=== PATIENT | female | born 1990 | race African-American/Black ===

== ENCOUNTER 2021-08-23 15:04 | Emergency (ER) | payer OTHER ==
[2021-08-23 16:21] LABS: Bilirubin Neg (Negative); Blood, Urine Negative (Negative); Clarity Clear (Clear); Glucose, Urine (Dipstick) Normal (Negative); Ketone, Urine Negative (Negative); Leukocyte Negative (Negative); Nitrite Negative (Negative); Protein, Urine (Dipstick) Negative (Neg-Trace); Urobilinogen Normal mg/dL (Less than 2)
[2021-08-23 16:23] LABS: Pregnancy Test - Urine (BHCG) Negative (Negative); Pregu Control Background? CLEAR/WHITE (CLR/WHITE); Pregu Control Bar Appear? YES (CONTROL BAR)
[2021-08-23] MEDS ORDERED: Ketorolac Tromethamine 30 MG/ML VIAL ONE (17:51)
[2021-08-26 20:38] LABS: Chlamydia by PCR Not Detected (NotDetected); GC by PCR Not Detected (NotDetected)
== END 2021-08-23 18:33 | disposition home or self-care (01) ==
LOC: CSHERS 15:04
DX: R30.0 Dysuria (principal); R10.31 Right lower quadrant pain; Z79.899 Other long term (current) drug therapy
CPT/HCPCS: 81003; 81025; 87491; 87591; 96372; 99284; J1885

== ENCOUNTER 2025-02-12 00:48 | Emergency (ER) | payer MEDICAID, SELFPAY ==
[2025-02-12 01:18] LABS: Glucose, Urine (Dipstick) Normal (Negative); Leukocyte 25 (Negative); Protein, Urine (Dipstick) 30 mg/dl (Neg-Trace); Specific Gravity, Urine 1.020 (1.005-1.030)
[2025-02-12 01:27] LABS: Bacteria/HPF None Seen HPF (None Seen); CAUTI Indications for Culture Pregnancy; RBC/HPF 0-3 HPF (0-3); WBC/HPF 0-3 HPF (0-3)
[2025-02-12 01:28] LABS: Urine Culture Reflex Yes Yes
[2025-02-12 01:41] LABS: #Basophils Less than 0.03 10x3/uL (0.0-0.2); #Eosinophils 0.15 10x3/uL (0.0-0.5); #Monocytes 1.30 10x3/uL (0.0-1.1); #Neutrophils 9.94 10x3/uL (1.5-8.4); %Basophils 0.1 % (0.0-2.0); %Eosinophils 1.1 % (0.0-6.0); %Lymphocytes 17.0 % (18.0-47.0); %Monocytes 9.3 % (0.0-10.0); %Neutrophils 71.4 % (40.0-75.0); Hematocrit 29.0 % (34.9-44.5); Hemoglobin 8.8 g/dL (12.0-15.5); Mean Corpuscular Hemoglobin 22.4 pg (27.0-33.0); Mean Corpuscular Volume 74.0 fL (81.6-98.3); Platelet Count 233 10x3/uL (150-450); Red Blood Cell (RBC) Count 3.92 10x6/uL (3.90-5.03); White Blood Cell (WBC) Count 13.92 10x3/uL (3.5-10.5)
[2025-02-12 01:53] LABS: ALT (SGPT) 28 U/L (Less than 34); AST (SGOT) 30 U/L (11-34); Albumin 3.4 g/dL (3.1-4.5); Alkaline Phosphatase 62 U/L (40-110); Anion Gap 13 mmol/L (10-20); BUN (Urea Nitrogen) 6 mg/dL (7.0-18.7); Bilirubin, Total 0.3 mg/dL (0.3-1.2); Calc. Creatinine Clearance 0 mL/min (70-130); Calcium 8.6 mg/dL (7.8-10.44); Carbon Dioxide 21 mmol/L (22-29); Chloride 106 mmol/L (98-107); Globulin 4.0 g/dL (2.4-3.5); Glucose 96 mg/dL (70-105); Potassium 3.6 mmol/L (3.5-5.1); Sodium 136 mmol/L (136-145)
[2025-02-12] MEDS ORDERED: Acetaminophen 500 MG TAB ONE (01:58)
[2025-02-12 02:00] LABS: Troponin I Less than 0.010 ng/mL (< 0.028)
[2025-02-12] MEDS ORDERED: Cephalexin 250 MG CAP ONE (03:43)
== END 2025-02-12 03:52 | disposition home or self-care (01) ==
LOC: CSHERS 00:48
DX: O23.42 Unspecified infection of urinary tract in pregnancy, second trimester (principal); N39.0 Urinary tract infection, site not specified; Z3A.22 22 weeks gestation of pregnancy
CPT/HCPCS: 36415; 76815; 80053; 81001; 83880; 84443; 84484; 85025; 87086

== ENCOUNTER 2025-03-02 14:37 | Emergency (ER) | payer MEDICAID ==
[2025-03-02] MEDS ORDERED: diphenhydrAMINE 50 MG/ML VIAL ONE (15:11)
[2025-03-02] MEDS ORDERED: Metoclopramide HCl 10 MG (2 mL) VIAL ONE (15:11)
[2025-03-02 15:55] LABS: ALT (SGPT) 21 U/L (Less than 34); AST (SGOT) 32 U/L (11-34); Albumin 3.5 g/dL (3.1-4.5); Alkaline Phosphatase 71 U/L (40-110); Anion Gap 15 mmol/L (10-20); BUN (Urea Nitrogen) 6 mg/dL (7.0-18.7); Bilirubin, Total 0.6 mg/dL (0.3-1.2); Calc. Creatinine Clearance 0 mL/min (70-130); Calcium 8.5 mg/dL (7.8-10.44); Carbon Dioxide 20 mmol/L (22-29); Chloride 107 mmol/L (98-107); Globulin 3.8 g/dL (2.4-3.5); Glucose 98 mg/dL (70-105); Lipase 8 U/L (8-78); Potassium 3.7 mmol/L (3.5-5.1); Sodium 138 mmol/L (136-145)
[2025-03-02 15:56] LABS: BHCG - Serum POSITIVE (NEGATIVE); Pregs Control Background? CLEAR/WHITE (CLR/WHITE); Pregs Control Bar Appear? YES (CONTROL BAR)
[2025-03-02 16:47] LABS: #Basophils Less than 0.03 10x3/uL (0.0-0.2); #Eosinophils 0.04 10x3/uL (0.0-0.5); #Monocytes 0.75 10x3/uL (0.0-1.1); #Neutrophils 8.72 10x3/uL (1.5-8.4); %Basophils 0.2 % (0.0-2.0); %Eosinophils 0.4 % (0.0-6.0); %Lymphocytes 7.6 % (18.0-47.0); %Monocytes 7.2 % (0.0-10.0); %Neutrophils 83.5 % (40.0-75.0); Hematocrit 30.0 % (34.9-44.5); Hemoglobin 9.1 g/dL (12.0-15.5); Mean Corpuscular Hemoglobin 22.6 pg (27.0-33.0); Mean Corpuscular Volume 74.4 fL (81.6-98.3); Platelet Count 231 10x3/uL (150-450); Red Blood Cell (RBC) Count 4.03 10x6/uL (3.90-5.03); White Blood Cell (WBC) Count 10.43 10x3/uL (3.5-10.5)
[2025-03-02 16:58] LABS: Glucose, Urine (Dipstick) Normal (Negative); Leukocyte 25 (Negative); Protein, Urine (Dipstick) 15 mg/dl (Neg-Trace); Specific Gravity, Urine 1.010 (1.005-1.030)
[2025-03-02 17:52] LABS: Bacteria/HPF Rare-Few HPF (None Seen); CAUTI Indications for Culture Pregnancy; RBC/HPF 0-3 HPF (0-3); WBC/HPF 0-3 HPF (0-3)
[2025-03-02 17:53] LABS: Urine Culture Reflex Yes Yes
== END 2025-03-02 18:12 | disposition home or self-care (01) ==
LOC: CSHERS 14:37
DX: O21.2 Late vomiting of pregnancy (principal); Z3A.24 24 weeks gestation of pregnancy
CPT/HCPCS: 76815; 80053; 81001; 83690; 84703; 85025; 87086; J1200; J2765

== ENCOUNTER 2025-05-16 01:20 | Emergency (ER) | payer MEDICAID ==
[2025-05-16] MEDS ORDERED: Acetaminophen 500 MG TAB ONE (02:04)
[2025-05-16 02:36] LABS: ALT (SGPT) 12 U/L (Less than 34); AST (SGOT) 21 U/L (11-34); Albumin 3.1 g/dL (3.1-4.5); Alkaline Phosphatase 140 U/L (40-110); Anion Gap 11 mmol/L (10-20); BUN (Urea Nitrogen) 9 mg/dL (7.0-18.7); Bilirubin, Total 0.6 mg/dL (0.3-1.2); Calc. Creatinine Clearance 0 mL/min (70-130); Calcium 9.2 mg/dL (7.8-10.44); Carbon Dioxide 23 mmol/L (22-29); Chloride 106 mmol/L (98-107); Globulin 3.9 g/dL (2.4-3.5); Glucose 92 mg/dL (70-105); Potassium 3.6 mmol/L (3.5-5.1); Sodium 136 mmol/L (136-145)
[2025-05-16 03:09] LABS: Hematocrit 28.4 % (34.9-44.5); Hemoglobin 8.5 g/dL (12.0-15.5); Mean Corpuscular Hemoglobin 21.2 pg (27.0-33.0); Mean Corpuscular Volume 70.8 fL (81.6-98.3); Platelet Count 284 10x3/uL (150-450); Red Blood Cell (RBC) Count 4.01 10x6/uL (3.90-5.03); White Blood Cell (WBC) Count 12.86 10x3/uL (3.5-10.5)
[2025-05-16 03:10] LABS: #Basophils 0.03 10x3/uL (0.0-0.2); #Eosinophils 0.07 10x3/uL (0.0-0.5); #Monocytes 1.12 10x3/uL (0.0-1.1); #Neutrophils 9.24 10x3/uL (1.5-8.4); %Basophils 0.2 % (0.0-2.0); %Eosinophils 0.5 % (0.0-6.0); %Lymphocytes 18.0 % (18.0-47.0); %Monocytes 8.7 % (0.0-10.0); %Neutrophils 71.9 % (40.0-75.0); Ovalocytes SLIGHT = 2-5 cells (100X) (0-1/hpf); Platelet Adequacy Comment Appears Adequate; Poikilocytosis MODERATE=16-30 cells (100X) (0-5/hpf); Polychromasia SLIGHT = 2-3 cells (100X) (0-2/hpf)
[2025-05-16 03:47] LABS: Glucose, Urine (Dipstick) Normal (Negative); Leukocyte 25 (Negative); Protein, Urine (Dipstick) 30 mg/dl (Neg-Trace); Specific Gravity, Urine 1.015 (1.005-1.030)
[2025-05-16 03:55] LABS: CAUTI Indications for Culture Pregnancy; RBC/HPF 0-3 HPF (0-3); WBC/HPF 0-3 HPF (0-3)
[2025-05-16 03:56] LABS: Bacteria/HPF Rare-Few HPF (None Seen)
[2025-05-16 03:57] LABS: Urine Culture Reflex Yes Yes
== END 2025-05-16 05:07 | disposition home or self-care (01) ==
LOC: CSHERS 01:20
DX: O99.612 Diseases of the digestive system complicating pregnancy, second trimester (principal); K08.89 Other specified disorders of teeth and supporting structures; O99.012 Anemia complicating pregnancy, second trimester; O12.12 Gestational proteinuria, second trimester; Z3A.26 26 weeks gestation of pregnancy
CPT/HCPCS: 36415; 80053; 81001; 83615; 85025; 87086; 93970

== ENCOUNTER 2025-06-10 05:50 | Inpatient (IN) | payer MEDICAID ==
[2025-06-10 06:38] VITALS: BMI 34.7
[2025-06-10] MEDS ORDERED: hydrALAZINE 20 MG/ML VIAL SLOW IVP PRN (07:10)
[2025-06-10] MEDS ORDERED: Diphenoxylate HCl/Atropine Tablet PO PRN (07:10)
[2025-06-10] MEDS ORDERED: Ondansetron PF 4 MG/2 ML Vial IVP PRN ×2 (07:10→12:25)
[2025-06-10] MEDS ORDERED: Lidocaine 1% (PF) 30 ML VIAL SC PRN (07:10)
[2025-06-10] MEDS ORDERED: Calcium Gluc 4.6 MEQ/10 ML (100 MG/ML) SLOW IVP PRN ×2 (07:10→21:24)
[2025-06-10] MEDS ORDERED: Carboprost 250 MCG/ML AMP IM PRN (07:10)
[2025-06-10] MEDS ORDERED: Tranexamic Acid 1,000 MG/10 ML VIAL IVP PRN (07:10)
[2025-06-10] MEDS ORDERED: Oxytocin 30 units/NS 500 ML 500 ML IV SCH ×2 (07:15)
[2025-06-10] MEDS ORDERED: Bupivacaine 0.25% HCL 30 ML VIAL ONE (08:00)
[2025-06-10] MEDS ORDERED: AZITHROMYCIN IVPB SCH (08:00)
[2025-06-10] MEDS: hydrALAZINE 20 MG/ML VIAL SLOW IVP PRN ×2 (08:04→08:32)
[2025-06-10] MEDS: Magnesium Sulfate 20 gm/500 ml 20 GM/500 ML BAG IVPB SCH (08:06)
[2025-06-10 08:24] LABS: #Basophils 0.04 10x3/uL (0.0-0.2); #Eosinophils 0.05 10x3/uL (0.0-0.5); #Monocytes 1.14 10x3/uL (0.0-1.1); #Neutrophils 7.79 10x3/uL (1.5-8.4); %Basophils 0.3 % (0.0-2.0); %Eosinophils 0.4 % (0.0-6.0); %Lymphocytes 22.4 % (18.0-47.0); %Monocytes 9.7 % (0.0-10.0); %Neutrophils 66.5 % (40.0-75.0); Hematocrit 27.6 % (34.9-44.5); Hemoglobin 8.1 g/dL (12.0-15.5); Mean Corpuscular Hemoglobin 20.7 pg (27.0-33.0); Mean Corpuscular Volume 70.4 fL (81.6-98.3); Platelet Count 244 10x3/uL (150-450); Red Blood Cell (RBC) Count 3.92 10x6/uL (3.90-5.03); White Blood Cell (WBC) Count 11.73 10x3/uL (3.5-10.5)
[2025-06-10 08:34] LABS: Cocaine Metabolite Screen Negative (Negative); THC/Cannabinoid Screen Negative (Negative); Tricyclic Screen Negative (Negative)
[2025-06-10 08:36] LABS: ALT (SGPT) 14 U/L (Less than 34); AST (SGOT) 21 U/L (11-34); Albumin 3.3 g/dL (3.1-4.5); Alkaline Phosphatase 196 U/L (40-110); Anion Gap 13 mmol/L (10-20); BUN (Urea Nitrogen) 9 mg/dL (7.0-18.7); Bilirubin, Total 0.8 mg/dL (0.3-1.2); Calc. Creatinine Clearance 180 mL/min (70-130); Calcium 8.7 mg/dL (7.8-10.44); Carbon Dioxide 21 mmol/L (22-29); Chloride 107 mmol/L (98-107); Globulin 3.9 g/dL (2.4-3.5); Glucose 74 mg/dL (70-105); Potassium 3.9 mmol/L (3.5-5.1); Sodium 137 mmol/L (136-145)
[2025-06-10 08:44] LABS: Protein, Urine Random Quant 124.0 mg/dL (1-14)
[2025-06-10 08:54] LABS: Syphilis Antibody Index 0.05 S/CO (<1.00 Non-Reactive)
[2025-06-10 08:55] LABS: Hep B Surf Ag - L&D Non-Reactive S/CO (NonReactive)
[2025-06-10] MEDS: Azithromycin 250 MG TAB PO SCH (10:01)
[2025-06-10] MEDS ORDERED: diphenhydrAMINE 50 MG/ML VIAL IVP PRN (12:25)
[2025-06-10] MEDS ORDERED: fentaNYL 2 mcg/Ropivacaine 0.2% Epidural 100 ML CADD EPIDURAL SCH (12:30)
[2025-06-10] MEDS ORDERED: Communication Order-Pharmacy FS SCH (12:30)
[2025-06-10] MEDS: Acetaminophen 500 MG TAB PO PRN (17:52)
[2025-06-10] MEDS: fentaNYL/Ropivacaine Epidural 100 ML ONE (18:35)
[2025-06-10] MEDS: Furosemide 40 MG (4 mL) VIAL SLOW IVP SCH (22:35)
[2025-06-11] MEDS: Ibuprofen 800 MG TAB PO PRN (03:52)
[2025-06-11 08:28] LABS: Hematocrit 23.8 % (34.9-44.5); Hemoglobin 6.8 g/dL (12.0-15.5)
[2025-06-11] MEDS ORDERED: Preparation H Ointment 28 GM TUBE PR PRN (10:43)
[2025-06-11] MEDS ORDERED: diphenhydrAMINE 25 MG CAP PO PRN (10:43)
[2025-06-11] MEDS ORDERED: Benzocaine-Menthol 82.5 ML CAN TOP PRN (10:43)
[2025-06-11] MEDS ORDERED: Lanolin Ointment 7 GM TUBE TOP PRN (10:43)
[2025-06-11] MEDS ORDERED: Bisacodyl 10 MG SUPP PR PRN (10:43)
[2025-06-11] MEDS ORDERED: Milk Of Magnesia 30 ML UDCUP PO PRN (10:43)
[2025-06-11] MEDS ORDERED: hydrALAZINE 20 MG/ML VIAL SLOW IVP PRN (10:43)
[2025-06-11] MEDS: NIFEdipine XL 30 MG ER.TAB PO SCH ×2 (10:55→18:24)
[2025-06-11] MEDS: Ferrous Sulfate 325 MG TAB PO SCH (11:10)
[2025-06-11] MEDS: Ibuprofen 800 MG TAB PO SCH ×2 (15:27→23:05)
[2025-06-11] MEDS: Furosemide 40 MG (4 mL) VIAL SLOW IVP SCH (15:28)
[2025-06-11] MEDS ORDERED: Calcium Gluc 4.6 MEQ/10 ML (100 MG/ML) SLOW IVP PRN (17:33)
[2025-06-11] MEDS: Magnesium Sulfate 20 gm/500 ml 20 GM/500 ML BAG IVPB SCH (17:45)
[2025-06-11 20:06] LABS: Magnesium 4.8 mg/dL (1.6-2.6)
[2025-06-12] MEDS: Magnesium Sulfate 20 gm/500 ml 20 GM/500 ML BAG ONE (01:03)
[2025-06-12] MEDS: Ferrous Sulfate 325 MG TAB PO SCH (01:03)
[2025-06-12] MEDS: Erythromycin Base 0.5% Oint 1 GM TUBE ONE (01:06)
[2025-06-12] MEDS: hydrALAZINE 20 MG/ML VIAL ONE (01:06)
[2025-06-12] MEDS: fentaNYL/Ropivacaine Epidural 100 ML ONE (01:06)
[2025-06-12] MEDS: Hepatitis B Vaccine 10 MCG/0.5 ML SYR ONE (01:07)
[2025-06-12 04:16] LABS: #Basophils Less than 0.03 10x3/uL (0.0-0.2); #Eosinophils 0.06 10x3/uL (0.0-0.5); #Monocytes 1.35 10x3/uL (0.0-1.1); #Neutrophils 14.60 10x3/uL (1.5-8.4); %Basophils 0.1 % (0.0-2.0); %Eosinophils 0.3 % (0.0-6.0); %Lymphocytes 15.0 % (18.0-47.0); %Monocytes 7.1 % (0.0-10.0); %Neutrophils 76.8 % (40.0-75.0); Hematocrit 25.1 % (34.9-44.5); Hemoglobin 7.7 g/dL (12.0-15.5); Mean Corpuscular Hemoglobin 21.9 pg (27.0-33.0); Mean Corpuscular Volume 71.5 fL (81.6-98.3); Platelet Count 243 10x3/uL (150-450); Red Blood Cell (RBC) Count 3.51 10x6/uL (3.90-5.03); White Blood Cell (WBC) Count 19.02 10x3/uL (3.5-10.5)
[2025-06-12 04:22] LABS: ALT (SGPT) 13 U/L (Less than 34); AST (SGOT) 20 U/L (11-34); Albumin 2.8 g/dL (3.1-4.5); Alkaline Phosphatase 134 U/L (40-110); Anion Gap 12 mmol/L (10-20); BUN (Urea Nitrogen) 9 mg/dL (7.0-18.7); Bilirubin, Total 0.4 mg/dL (0.3-1.2); Calc. Creatinine Clearance 175 mL/min (70-130); Calcium 7.7 mg/dL (7.8-10.44); Carbon Dioxide 22 mmol/L (22-29); Chloride 106 mmol/L (98-107); Globulin 3.4 g/dL (2.4-3.5); Glucose 103 mg/dL (70-105); Potassium 3.7 mmol/L (3.5-5.1); Sodium 136 mmol/L (136-145)
[2025-06-12] MEDS: NIFEdipine XL 60 MG ER.TAB PO SCH (07:49)
[2025-06-12] MEDS: Acetaminophen 325 MG TAB PO PRN (12:09)
[2025-06-12] MEDS: Furosemide 20 MG TAB PO SCH (12:21)
[2025-06-13 11:37] VITALS: BP 126/71; TEMP 98.3
== END 2025-06-13 16:00 | disposition home or self-care (01) | DRG 806 ==
LOC: CSHLD/OP 05:50 → CSHLD 08:00 → CSHPP 06-11 23:24
PROVIDERS: ADMIT Family Medicine; ATTEND Family Medicine
PROC: 10E0XZZ Delivery of Products of Conception, External Approach (ICD-10-PCS; principal; 2025-06-10)
PROC: 4A1HXCZ Monitoring of Products of Conception, Cardiac Rate, External Approach (ICD-10-PCS; 2025-06-10)
PROC: 10H07YZ Insertion of Other Device into Products of Conception, Via Natural or Artificial Opening (ICD-10-PCS; 2025-06-10)
PROC: 0UC97ZZ Extirpation of Matter from Uterus, Via Natural or Artificial Opening (ICD-10-PCS; 2025-06-10)
PROC: 3E03329 Introduction of Other Anti-infective into Peripheral Vein, Percutaneous Approach (ICD-10-PCS; 2025-06-10)
PROC: 10907ZC Drainage of Amniotic Fluid, Therapeutic from Products of Conception, Via Natural or Artificial Opening (ICD-10-PCS; 2025-06-10)
PROC: 30233N1 Transfusion of Nonautologous Red Blood Cells into Peripheral Vein, Percutaneous Approach (ICD-10-PCS; 2025-06-11)
DX: O14.14 Severe pre-eclampsia complicating childbirth (principal); D62 Acute posthemorrhagic anemia; Z37.0 Single live birth; O98.32 Other infections with a predominantly sexual mode of transmission complicating childbirth; O98.82 Other maternal infectious and parasitic diseases complicating childbirth; Z3A.39 39 weeks gestation of pregnancy; O99.02 Anemia complicating childbirth; O70.0 First degree perineal laceration during delivery; A60.09 Herpesviral infection of other urogenital tract; Z87.59 Personal history of other complications of pregnancy, childbirth and the puerperium; Z79.899 Other long term (current) drug therapy; O69.81X0 Labor and delivery complicated by cord around neck, without compression, not applicable or unspecified; A74.9 Chlamydial infection, unspecified
CPT/HCPCS: 36415; 36430; 51702; 80053; 80306; 82570; 83735; 84156; 84443; 85014; 85018; 85025; 86780; 86850; 86900; 86901; 87340; 93005; 93010; 99285; J0360; J0665; J1940; J2543; J3010; J3475; P9016